=== PATIENT | male | born 1965 | race African-American/Black ===

== ENCOUNTER 2016-06-30 04:23 | Emergency (ER) | payer OTHER ==
--- NOTE | 2016-06-30 04:28 | EDPHY ---
H & P HPI/ROS: HPI CHIEF COMPLAINT: Left foot pain specifically pain over the left great toe HISTORY OF PRESENT ILLNESS: Patient very pleasant 50-year-old male, significant past medical history for hypertension and kidney stones, presents emergency room by private vehicle at 4:40 a.m. in the morning with left great toe pain specifically pain started 24 hours ago over the dorsum of the left foot specifically localized to the left great toe. He denies injury. He states that he did job across the street earlier today as a car was coming but does not remember any injury. States the pain has been present for approximately 24 hours throbbing in nature. Bothered him so much tonight that he came to the emergency room. He has not had a fever, he denies any significant redness. It is noted on exam the neurovascular intact of his left leg and good DP pulse. It is a hard to assess his anatomy of his feet as he has very edematous enlarged feet. Warm extremity, no significant redness. Tender palpation over the 1st MTP of the left foot. No history of gout. Past Medical History: Hypertension, kidney stones Past Surgical History: No recent surgical history Social History: Lives locally in [place], works for the [employer], denies drugs alcohol tobacco products Family History: noncontributory ROS REVIEW OF SYSTEMS: A comprehensive 10 point review of systems is otherwise negative aside from elements mentioned in the history of present illness. Exam Constitutional triage nursing summary reviewed, vital signs reviewed, awake/ alert. Eyes normal conjunctivae and sclera, EOMI, PERRLA. HENT normal inspection, atraumatic, moist mucus membranes, no epistaxis, neck supple/ no meningismus, no raccoon eyes. Respiratory clear to auscultation bilaterally, normal breath sounds, no respiratory distress, no wheezing. Cardiovascular rate normal, regular rhythm, no murmur, no edema, distal pulses normal. Gastrointestinal soft, non-tender, no rebound, no guarding, normal bowel sounds, no distension, no pulsatile mass. Genitourinary no CVA tenderness. Musculoskeletal left lower extremity: neurovascular intact specifically good sensation, warm extremity: Good pulse, rather large foot edematous chronically and about the same size is right foot. He does have tender palpation over the 1st MTP joint. No redness no warmth. Tender palpation with flexion of the toes. no midline vertebral tenderness, full range of motion, no calf swelling, no tenderness of extremities, no meningismus, good pulses, neurovascularly intact. Skin pink, warm, & dry, no rash, skin atraumatic. Neurologic awake, alert and oriented x 3, AAOx3, moves all 4 extremities equally, motor intact, sensory intact, CN II-XII intact, normal cerebellar, normal vision, normal speech. Psychiatric normal mood/affect. Heme/Lymph/Immune no lymphadenopathy. Differential Diagnosis: Includes but is not limited to in a particular order foot contusion, foot sprain, tendinitis, gout, septic joint, fracture. Medical Decision Making: Plan for this patient declined any pain medicine here in the emergency room will perform a foot x-ray to visualize any arthritic changes fracture. Differential most likely is either tendinitis versus gout. Re-evaluation: ED x-ray left foot: three view: negative for acute fracture visualized. Do not appreciate any significant abnormality of the foot. X-ray has been reviewed I do not see anything acute. I will place this patient on indomethacin he needs to follow up with Podiatry in case this is gout. No evidence septic joint at this time. Specifically no significant swelling or redness. Does have range of motion. He is neurovascular intact good pulse. Tender palpation over the 1st MTP. Recommend close follow-up with Podiatry and trial of indomethacin. Return to the emergency room if there is any worsening symptoms questions or concerns. He understands. Source: Patient - Medical/Surgical History Hx Asthma: No Hx Chronic Respiratory Disease: No Hx Diabetes: No Hx Cardiac Disease: No Hx Renal Disease: No Hx Cirrhosis: No Hx Alcoholism: No Hx HIV/AIDS: No Hx Splenectomy or Spleen Trauma: No Other PMH: HTN, rt knee - Social History Smoking Status: Never smoked Constitutional: Initial Vital Signs Temperature (C) 36.9 C 06/30/16 04:25 Heart Rate 76 06/30/16 04:25 Respiratory Rate 16 06/30/16 04:25 Blood Pressure 161/87 H 06/30/16 04:25 O2 Sat (%) 95 06/30/16 04:25 O2 Delivery Mode Room Air Allergies/Adverse Reactions: No Known Allergies Allergy (Verified 03/19/14 05:45) Home Medications: Medication Instructions Recorded Nifedical Xl 03/20/14 FLUTICASONE PROPIONATE 06/30/16 Indomethacin [Indocin 25 mg (*)] 25 mg PO BID #14 cap 06/30/16 Lisinopril/Hctz 20/12.5MG 06/30/16 Departure - Departure Disposition: Home, Routine, Self-Care Clinical Impression: Foot pain, left Condition: Good Instructions: Low Purine Diet (ED), Gout (ED), Arthralgia (ED), Swollen Joint ( ED) Additional Instructions: 1. I would ice your foot and keep it elevated. 2. Please follow up with a foot doctor podiatry next 24-48 hours please call their for an appointment. 3. I have started on indomethacin for possible gout. This may improve your pain. Return emergency room if you have worsening symptoms questions or concerns. I do recommend he follow up with the foot doctor. Referrals: Delfin Trevino MD [Primary Care Provider] - As per Instructions Chinedu Farmer DPM [Doctor of Podiatric Medicine] - As per Instructions Prescriptions: Indomethacin [Indocin 25 mg (*)] 25 mg PO BID #14 cap
[2016-06-30 04:30] VITALS: RESP 16
[2016-06-30 05:48] VITALS: BP 159/91; PULSE 82; TEMP 98.2; O2SAT 94
== END 2016-06-30 05:48 | disposition home or self-care (01) ==
DX: M79.672 Pain in left foot (principal); I10 Essential (primary) hypertension

== ENCOUNTER → 2017-03-04 | Outpatient (CLI) | payer OTHER | LOC: BMCIMAGING 12:51 | PROVIDERS: ATTEND Family Medicine | DX: R05 Cough (principal); R09.81 Nasal congestion ==

== ENCOUNTER 2017-06-24 00:50 | Emergency (ER) | payer OTHER ==
--- NOTE | 2017-06-24 00:58 | EDPHY ---
H & P Stated Complaint: Poss allergic reaction - unknown allergies. Time Seen by Provider: 06/24/17 00:58 HPI/ROS: HPI CHIEF COMPLAINT: Allergic reaction, lower lip swelling. HISTORY OF PRESENT ILLNESS: Patient is a 51-year-old male, he has a history of hypertension and takes lisinopril. He presents emergency room with lower lip swelling and trouble breathing. Also having some wheezing. Patient states that he ate peanuts around 930 this evening. He states only about half an hour ago he developed the symptoms. It is now 1 o'clock in the morning. Additionally patient does take JULIO-inhibitor for hypertension. He has never had angioedema before. Patient's main complaint is trouble breathing. He was out in triage and brought immediately back to room 1. His vital signs are stable. He did have an 87% sat at triage. Upon arrival he immediately received 0.3 mg IM epinephrine, an IV was established receive Solu-Medrol, Benadryl, Zantac. He is in ER room 1 being closely monitored. He speaking coherently to me. Good breath sounds bilaterally faint wheezing, DuoNeb breathing treatment as been ordered. Past Medical History: Gout, hypertension Social History: Denies drugs alcohol tobacco. Lives locally. Family History: Noncontributory ROS REVIEW OF SYSTEMS: A comprehensive 10 point review of systems is otherwise negative aside from elements mentioned in the history of present illness. Exam Constitutional appears well nontoxic no acute distress, triage nursing summary reviewed, vital signs reviewed, awake/alert. No distress. Eyes normal conjunctivae and sclera, EOMI, PERRLA. HENT oropharynx no stridor, tongue is normal side, posterior pharynx appears normal, uvula midline, lower lip is somewhat edematous, no swelling underneath his tongue, normal inspection, atraumatic, moist mucus membranes, no epistaxis, neck supple/ no meningismus, no raccoon eyes. Respiratory faint wheezing bilaterally. Cardiovascular rate normal, regular rhythm, no murmur, no edema, distal pulses normal. Gastrointestinal soft, non-tender, no rebound, no guarding, normal bowel sounds, no distension, no pulsatile mass. Genitourinary no CVA tenderness. Musculoskeletal no midline vertebral tenderness, full range of motion, no calf swelling, no tenderness of extremities, no meningismus, good pulses, neurovascularly intact. Skin no rash, no urticaria pink, warm, & dry, no rash, skin atraumatic. Neurologic awake, alert and oriented x 3, AAOx3, moves all 4 extremities equally, motor intact, sensory intact, CN II-XII intact, normal cerebellar, normal vision, normal speech. Psychiatric normal mood/affect. Heme/Lymph/Immune no lymphadenopathy. Differential Diagnosis: Includes but is not limited to in a particular order severe allergic reaction, anaphylaxis, angioedema from JULIO inhibitors. Medical Decision Making: Plan for this patient IV establishment full cardiac technologist monitored closely in ER room 1. Airway equipment at bedside. IM epinephrine given 0.3 mg, IV Solu-Medrol, IV Benadryl, IV Pepcid or Zantac Re-evaluation: 0141AM: Patient re-evaluated this time. He is resting comfortably. He states he feels much better. Good air movement. Vital signs are stable. There has been no progression of allergic reaction at this time. Will continue to monitor closely. 0350: Patient re-evaluated this time is resting comfortably. He states that his lower lip swelling has greatly improved and he does not have any trouble swallowing or breathing. He states he feels much better. Continues to be on the monitor his heart rate is currently 59, pulse ox 95% on room air, blood pressure 117/62. He is resting comfortably. There has been no further progression of allergic reaction. Will continue to observe him. He has been in the emergency room currently for 3 hr. 0512: Patient re-evaluated resting comfortably. He is requesting discharge. He states his swelling in his lip, and trouble breathing is completely resolved. His vital signs have been stable. There has been no progression of allergic reaction. The patient would like to be discharged. I have given him very strict return precautions he understands return emergency room if develops worsening symptoms this includes trouble breathing, trouble swallowing, swelling. Prednisone for 3 days, Benadryl for 3 days, and Pepcid for 3 days. He understands not take his lisinopril. He understands follow-up with his primary care doctor for blood pressure recheck and switch his medications. Additionally recommend he follows up with an software configuration manager for formal allergy testing. I went over this extensively with him. He understands he is agreeable for this plan. Return precautions discussed. He understands he has recurrence of reaction he should call 911. He understands if he has any further swelling trouble breathing trouble swallowing to return immediately emergency room. Source: Patient - Personal History Current Tetanus/Diphtheria Vaccine: No Current Tetanus Diphtheria and Acellular Pertussis (TDAP): No - Medical/Surgical History Hx Asthma: No Hx Chronic Respiratory Disease: No Hx Diabetes: No Hx Cardiac Disease: No Hx Renal Disease: No Hx Cirrhosis: No Hx Alcoholism: No Hx HIV/AIDS: No Hx Splenectomy or Spleen Trauma: No Other PMH: HTN, rt knee, GOUT - Social History Smoking Status: Never smoked Constitutional: Initial Vital Signs Temperature (C) 37.1 C 06/24/17 00:53 Heart Rate 92 06/24/17 00:53 Respiratory Rate 18 06/24/17 00:53 Blood Pressure 140/78 H 06/24/17 00:53 O2 Sat (%) 87 L 06/24/17 00:53 O2 Delivery Mode Room Air O2 (L/minute) 2 Allergies/Adverse Reactions: No Known Allergies Allergy (Verified 03/19/14 05:45) Home Medications: Medication Instructions Recorded Nifedical Xl 03/20/14 FLUTICASONE PROPIONATE 06/30/16 Indomethacin [Indocin 25 mg (*)] 25 mg PO BID #14 cap 06/30/16 Lisinopril/Hctz 20/12.5MG 06/30/16 Famotidine [Pepcid 20 MG (*)] 20 mg PO BID #6 tab 06/24/17 diphenhydrAMINE [Benadryl 25 MG 25 mg PO BID #6 tab 06/24/17 (*)] predniSONE 50 mg PO DAILY #3 tablet 06/24/17 Medical Decision Making - Data Points Laboratory Results: Laboratory Results 06/24/17 01:20 06/24/17 01:20 06/24/17 06/24/17 01:20 01:20 WBC 5.46 10^3/uL 10^3/uL (3.80-9.50) RBC 4.95 10^6/uL 10^6/uL (4.40-6.38) Hgb 14.2 g/dL g/dL (13.7-17.5) Hct 42.7 % % (40.0-51.0) MCV 86.3 fL fL (81.5-99.8) MCH 28.7 pg pg (27.9-34.1) MCHC 33.3 g/dL g/dL (32.4-36.7) RDW 13.3 % % (11.5-15.2) Plt Count 220 10^3/uL 10^3/uL (150-400) MPV 10.2 fL fL (8.7-11.7) Neut % (Auto) 36.3 % L % (39.3-74.2) Lymph % (Auto) 53.8 % H % (15.0-45.0) Phillips % (Auto) 7.9 % % (4.5-13.0) Eos % (Auto) 1.8 % % (0.6-7.6) Baso % (Auto) 0.2 % L % (0.3-1.7) Nucleat RBC Rel Count 0.0 % % (0.0-0.2) Absolute Neuts (auto) 1.98 10^3/uL 10^3/uL (1.70-6.50) Absolute Lymphs (auto) 2.94 10^3/uL 10^3/uL (1.00-3.00) Absolute Monos (auto) 0.43 10^3/uL 10^3/uL (0.30-0.80) Absolute Eos (auto) 0.10 10^3/uL 10^3/uL (0.03-0.40) Absolute Basos (auto) 0.01 10^3/uL L 10^3/uL (0.02-0.10) Absolute Nucleated RBC 0.00 10^3/uL 10^3/uL (0-0.01) Immature Gran % 0.0 % % (0.0-1.1) Immature Gran # 0.00 10^3/uL 10^3/uL (0.00-0.10) Sodium 142 mEq/L mEq/L (135-145) Potassium 3.8 mEq/L mEq/L (3.5-5.2) Chloride 108 mEq/L mEq/L (97-110) Carbon Dioxide 24 mEq/l mEq/l (22-31) Anion Gap 10 mEq/L mEq/L (8-16) BUN 26 mg/dL H mg/dL (7-23) Creatinine 1.0 mg/dL mg/dL (0.7-1.3) Estimated GFR > 60 Glucose 114 mg/dL H mg/dL (70-100) Calcium 9.6 mg/dL mg/dL (8.5-10.4) Medications Given: Discontinued Medications Albuterol/Ipratropium (Duoneb) 3 ml IH EDNOW ONE Stop: 06/24/17 01:03 Last Admin: 06/24/17 01:22 Dose: 3 ml Diphenhydramine HCl (Benadryl Injection) 50 mg IVP EDNOW ONE Stop: 06/24/17 01:03 Last Admin: 06/24/17 01:12 Dose: 50 mg Epinephrine HCl (Epinephrine) 0.3 mg IM EDNOW ONE Stop: 06/24/17 01:03 Last Admin: 06/24/17 01:12 Dose: 0.3 mg Sodium Chloride (Ns) 1,000 mls @ 0 mls/hr IV ONCE ONE; Wide Open PRN Reason: Protocol Stop: 06/24/17 01:03 Last Admin: 06/24/17 01:15 Dose: 1,000 mls Methylprednisolone Sodium Succinate (Solu-Medrol) 125 mg IVP EDNOW ONE Stop: 06/24/17 01:03 Last Admin: 06/24/17 01:12 Dose: 125 mg Ranitidine HCl (Zantac) 50 mg IVP EDNOW ONE Stop: 06/24/17 01:03 Last Admin: 06/24/17 01:12 Dose: 50 mg Departure - Departure Disposition: Home, Routine, Self-Care Clinical Impression: Allergic reaction Qualifiers: Encounter type: initial encounter Qualified Code(s): T78.40XA - Allergy, unspecified, initial encounter Condition: Good Instructions: Food Allergy (ED), Anaphylaxis (ED), Allergies (ED), Angioedema ( ED) Additional Instructions: 1. Do not take your lisinopril. This may be the cause of her facial and lip swelling. Follow up with her primary care doctor about a new blood pressure medication. 2. Do not eat peanuts. 3. Follow up with an software configuration manager in a formal allergy testing. 4. Follow up with her primary care doctor. 5. Prednisone for the next 3 days, Benadryl for the next 3 days, and Pepcid for the next 3 days Referrals: Delfin Trevino MD [Primary Care Provider] - As per Instructions Prescriptions: diphenhydrAMINE [Benadryl 25 MG (*)] 25 mg PO BID #6 tab Famotidine [Pepcid 20 MG (*)] 20 mg PO BID #6 tab predniSONE 50 mg PO DAILY #3 tablet
[2017-06-24] MEDS ORDERED: RANITIDINE 50 MG/2 ML VIAL IVP ONE (01:02)
[2017-06-24] MEDS ORDERED: methylPREDNISolone SOD SUCC 125 MG/2 ML VIAL IVP ONE ×2 (01:02→05:32)
[2017-06-24] MEDS ORDERED: IPRATROPIUM/ALBUTEROL 3 ML DEYVIAL IH ONE (01:02)
[2017-06-24] MEDS ORDERED: NS 1,000 ML IV ONE (01:02)
[2017-06-24 01:26] LABS: PLATELET COUNT 220 10^3/uL (150-400)
[2017-06-24 04:59] VITALS: RESP 16
[2017-06-24] MEDS ORDERED: ALBUTEROL 3 ML DEYVIAL IH ONE (05:32)
[2017-06-24] MEDS ORDERED: RANITIDINE 50 MG/2 ML VIAL IV ONE (05:32)
[2017-06-24 05:47] VITALS: BP 128/73; PULSE 71; TEMP 97.9; O2SAT 97
== END 2017-06-24 05:45 | disposition home or self-care (01) ==
DX: T78.1XXA Other adverse food reactions, not elsewhere classified, initial encounter (principal); I10 Essential (primary) hypertension; E86.9 Volume depletion, unspecified
CPT/HCPCS: 96374; J0171; J1200; J2780; J2930; J7613